=== PATIENT | male | born 1990 ===

== ENCOUNTER 2021-12-25 05:49 | Day surgery (SDC) | payer OTHER ==
[2021-12-25] MEDS ORDERED: PERCOCET 5-3251 EACH PO (09:40)
== END 2021-12-25 11:35 | disposition home or self-care (01) ==
LOC: CIR.AMB 05:49
PROVIDERS: ATTEND Surgery
DX: K80.10 Calculus of gallbladder with chronic cholecystitis without obstruction (principal); K82.8 Other specified diseases of gallbladder; Z20.822 Contact with and (suspected) exposure to COVID-19; K21.9 Gastro-esophageal reflux disease without esophagitis